=== PATIENT | female | born 1980 | race Two or more races ===

== ENCOUNTER 2021-04-27 10:07 | Outpatient (CLI) | payer OTHER | END 2021-04-27 10:14 | disposition home or self-care (01) | LOC: RX STUDY 10:07 | PROVIDERS: ATTEND Surgery | DX: K60.3 Anal fistula (principal) ==

== ENCOUNTER 2022-02-25 08:48 | Outpatient (CLI) | payer OTHER | END 2022-02-25 08:52 | disposition home or self-care (01) | LOC: RAD 08:48 | PROVIDERS: ATTEND General Practice | DX: K60.5 Anorectal fistula (principal) ==